=== PATIENT | female | born 1985 | race Caucasian/White ===

== ENCOUNTER 2019-06-05 09:00 | Emergency (ER) | payer BC ==
[2019-06-05 09:35] VITALS: BP 131/77
--- NOTE | 2019-06-05 09:50 | UC ---
Throat Pain/Nasal Chandrakant HPI - HPI Summary HPI Summary: 34-year-old female who has had sore throat and body aches for the past 2 or 3 days. She denies any fever or chills. She is a schoolteacher. - History of Current Complaint Chief Complaint: UCGeneralIllness Stated Complaint: ST Time Seen by Provider: 06/05/19 09:34 Hx Obtained From: Patient Hx Last Menstrual Period: 05/27/19 ?: No Onset/Duration: Gradual Onset Severity: Moderate Pain Intensity: 8 Cough: None Associated Signs & Symptoms: Positive: Negative - Allergies/Home Medications Allergies/Adverse Reactions: Allergies Allergy/AdvReac Type Severity Reaction Status Date / Time No Known Allergies Allergy Verified 06/05/19 09:31 Home Medications: Home Medications Amoxicillin PO (*) [Amoxicillin 875 MG (*)] 875 mg PO BID 10 Days #20 tab [Rx] PMH/Surg Hx/FS Hx/Imm Hx Previously Healthy: Yes - Surgical History Surgical History: None - Family History Known Family History: Positive: Unknown - Social History Occupation: Employed Full-time Lives: With Family Alcohol Use: Rare Substance Use Type: None Smoking Status (MU): Never Smoked Tobacco Review of Systems All Other Systems Reviewed And Are Negative: Yes ENT: Positive: Sore Throat Musculoskeletal: Positive: Myalgia Is Patient Immunocompromised?: No Physical Exam Triage Information Reviewed: Yes Appearance: Well-Appearing, No Pain Distress, Well-Nourished Vital Signs: Initial Vital Signs Temp 98.4 F 06/05/19 09:32 Pulse 90 06/05/19 09:32 Resp 16 06/05/19 09:32 BP 131/77 06/05/19 09:32 Pulse Ox 99 06/05/19 09:32 Vital Signs Reviewed: Yes Eyes: Positive: Conjunctiva Clear ENT: Positive: Pharyngeal erythema, TMs normal, Uvula midline. Negative: Tonsillar swelling, Tonsillar exudate, Trismus, Muffled voice, Hoarse voice Neck: Positive: Supple, Nontender, Enlarged Nodes @ - Mild bilateral tonsillar lymph node enlargement. Respiratory: Positive: Lungs clear, Normal breath sounds, No respiratory distress, No accessory muscle use Cardiovascular: Positive: RRR, No Murmur, Pulses Normal, Brisk Capillary Refill Musculoskeletal Exam: Normal Neurological Exam: Normal Psychological Exam: Normal Skin Exam: Normal Throat Pain/Nasal Course/Dx - Course Course Of Treatment: Rapid strep test: Positive - Differential Dx/Diagnosis Provider Diagnosis: Strep pharyngitis Discharge ED - Sign-Out/Discharge Documenting (check all that apply): Patient Departure All imaging exams completed and their final reports reviewed: No Studies - Discharge Plan Condition: Good Disposition: HOME Prescriptions: Amoxicillin PO (*) [Amoxicillin 875 MG (*)] 875 mg PO BID 10 Days #20 tab Patient Education Materials: Strep Throat (DC) Forms: *Work Release Referrals: Esther Ca MD [Primary Care Provider] - Additional Instructions: Increase fluids, warm saltwater gargles, throat lozenges. May take ibuprofen 600 mg every 8 hours as needed for pain or fever. Change her toothbrush in 24 hours. Follow-up with your primary care provider if no improvement or if worsening symptoms in 3 or 4 days. - Billing Disposition and Condition Condition: GOOD Disposition: Home
== END 2019-06-05 10:02 | disposition home or self-care (01) ==
LOC: UCCORT 09:00
DX: J02.0 Streptococcal pharyngitis (principal); M79.10 Myalgia, unspecified site
CPT/HCPCS: 87651; 99202; G0463